=== PATIENT | male | born 1965 | race Two or more races ===

== ENCOUNTER 2017-01-27 00:46 | Emergency (ER) | payer SELFPAY ==
[2017-01-27] MEDS ORDERED: ONDANSETRON 4 MG ODT TAB ONE (01:39)
[2017-01-27 02:49] LABS: ABSOLUTE NEUTROPHIL COUNT 3.1 K/mm3 (1.8-7.7); BASO % 0.7 % (0.2-1.0); EOS # 0.1 (0.0-0.5); EOS % 1.6 % (0.9-2.9); HEMATOCRIT 42.4 % (32.0-52.0); HEMOGLOBIN 14.8 gm/l (14.0-18.0); IMM NEUT% 0.2 % (0-1); LYMPH # 1.9 (1.0-4.8); LYMPH % 34.1 % (15-45); MEAN CELL VOLUME 88.1 fl (80.0-94.0); MEAN CORPUSCULAR HEMOGLOBIN 30.8 pg (27.0-31.0); MEAN CORPUSCULAR HGB CONC 34.9 g/dl (33.0-37.0); MEAN PLATELET VOLUME 9.8 fl (7.4-10.4); MONO # 0.5 (0.0-0.8); NEUT % 54.4 % (43-75); PLATELET COUNT 215 K/mm3 (130-400); RED CELL DISTRIBUTION WIDTH 12.6 % (11.5-14.5)
[2017-01-27 03:13] LABS: ALB/GLOB RATIO 1.6 (>1.0); ALBUMIN 4.1 gm/dL (3.5-5.7); CALCIUM 8.7 mg/dL (8.6-10.3)
[2017-01-27 04:11] LABS: URINE BILIRUBIN NEGATIVE (NEGATIVE); URINE BLOOD NEGATIVE (NEGATIVE); URINE GLUCOSE (UA) NEGATIVE (NEGATIVE); URINE LEUKOCYTE ESTERASE NEGATIVE (NEGATIVE); URINE NITRITE NEGATIVE (NEGATIVE); URINE PROTEIN NEGATIVE (NEGATIVE); URINE UROBILINOGEN NORMAL (0-1 mg/dl)
[2017-01-27 04:13] LABS: URINE APPEARANCE CLEAR; URINE COLOR YELLOW
[2017-01-27] MEDS ORDERED: AZITHROMYCIN 250 MG TABLET ONE (04:24)
--- NOTE | 2017-01-27 07:42 | RAD ---
Exam: Two-view chest COMPARISON: None INDICATION: Cough and headache. FINDINGS: PA and lateral views of the chest were obtained. Cardiac silhouette is within normal limits. Lung volumes are low on the lateral view. There is mild elevation the right hemidiaphragm. Subtle nodular density which projects over the right lower lobe is noted and probably reflects a nipple shadow. There is mild coarsening of the bronchovascular markings. There is no focal airspace disease or pleural effusion. Bones of the chest wall within normal limits. IMPRESSION: Mild prominence the bronchovascular markings, however there is no radiographic evidence of pneumonia.
== END 2017-01-27 04:23 | disposition home or self-care (01) ==
LOC: ED 00:46
DX: J40 Bronchitis, not specified as acute or chronic (principal); R51 Headache
CPT/HCPCS: 85025; 80053; 81003; 84484; 71020; 99283 ×2; 93005; A9270 ×2